=== PATIENT | female | born 1985 | race Asian ===

== ENCOUNTER 2018-06-14 08:30 | Emergency (ER) | payer OTHER ==
[~2018-06-14] VITALS: Ht 160 cm; Wt 66.4 kg
[2018-06-14] MEDS ORDERED: KETOROLAC TROMETHAMINE 60 MG/2 ML VIAL IM ONE (09:15)
[2018-06-14] MEDS ORDERED: METHOCARBAMOL 500 MG TABLET PO ONE (09:15)
[2018-06-14 09:57] VITALS: BP 124/79
== END 2018-06-14 10:18 | disposition home or self-care (01) ==
LOC: EMS 08:32
DX: S16.1XXA Strain of muscle, fascia and tendon at neck level, initial encounter (principal); V49.40XA Driver injured in collision with unspecified motor vehicles in traffic accident, initial encounter; Y93.89 Activity, other specified; Y92.414 Local residential or business street as the place of occurrence of the external cause; Y99.8 Other external cause status
CPT/HCPCS: 96372; 99283; J1885